=== PATIENT | female | born 2000 | race Caucasian/White ===

== ENCOUNTER 2021-06-13 13:20 | Emergency (ER) | payer SELFPAY ==
[~2021-06-13] VITALS: Ht 157.5 cm; Wt 98.6 kg
[2021-06-13 14:32] LABS: HEMATOCRIT 46.6 % (37.0-47.0); HEMOGLOBIN 15.4 g/dl (12.0-16.0); IMMATURE GRANULOCYTES 0.3 % (0.0-5.0); MEAN CELL VOLUME 88.6 fL CALC (80.0-100.0); MEAN CORPUSCULAR HGB 29.3 pG CALC (26.0-32.0); NEUT# 4.95 thou/uL (2.00-7.15); RED BLOOD COUNT 5.26 mill/uL (4.20-5.60); RED CELL DISTRI WIDTH 12.6 % (11.5-15.5)
[2021-06-13 14:57] LABS: ALBUMIN 4.6 g/dL (3.2-5.0); ALKALINE PHOSPHATASE 60 u/l (38-126); ANION GAP 16 (6-22 (CALC)); BILIRUBIN, TOTAL 0.5 mg/dL (0.0-1.4); BUN 13 mg/dL (7-17); BUN/CREATININE RATIO 17 (12-20 (CALC)); CARBON DIOXIDE 23 mmol/l (22-30); CHLORIDE 106 mmol/l (95-108); CREATININE 0.8 mg/dL (0.5-1.0); GFR > 60 ML/MIN (>=60 (CALC)); GFR FOR AFR.AMER. > 60 ML/MIN (>=60 (CALC)); SGOT/AST 20 u/l (14-36); SODIUM 141 mmol/l (137-146); TOTAL PROTEIN 7.9 g/dL (6.3-8.2)
[2021-06-13] MEDS ORDERED: PREDNISONE20 MG PO (18:56)
[2021-06-13] MEDS ORDERED: VENTOLIN HFA IN (18:56)
[2021-06-13 19:53] VITALS: BP 142/82
== END 2021-06-13 20:04 | disposition home or self-care (01) | DRG 203 ==
LOC: ED 13:20
PROVIDERS: Nurse Practitioner
DX: J45.901 Unspecified asthma with (acute) exacerbation (principal); R51.9 Headache, unspecified

== ENCOUNTER 2021-07-02 06:51 | Emergency (ER) | payer SELFPAY ==
[~2021-07-02] VITALS: Ht 167.6 cm; Wt 99.0 kg
[~2021-07-02 06:51] MED LIST: PREDNISONE20 MG PO; VENTOLIN HFA IN
[2021-07-02 07:02] VITALS: BP 116/77
[2021-07-02 07:15] VITALS: BP 121/75
[2021-07-02 07:30] VITALS: BP 121/74
[2021-07-02] MEDS ORDERED: VENTOLIN HFA IN (07:48)
[2021-07-02] MEDS ORDERED: PREDNISONE20 MG PO (07:48)
[2021-07-02 07:51] VITALS: BP 121/74
== END 2021-07-02 07:59 | disposition home or self-care (01) | DRG 203 ==
LOC: ED 06:51
DX: J45.901 Unspecified asthma with (acute) exacerbation (principal)

== ENCOUNTER 2021-07-03 23:52 | Emergency (ER) | payer SELFPAY ==
[~2021-07-03] VITALS: Ht 167.6 cm; Wt 100.0 kg
[2021-07-04] MEDS ORDERED: VENTOLIN HFA IN (00:46)
[2021-07-04] MEDS ORDERED: ADVAIR DISK2 IN (00:46)
[2021-07-04] MEDS ORDERED: PREDNISONE50 MG PO (00:46)
[2021-07-04 00:55] VITALS: BP 120/60
== END 2021-07-04 00:56 | disposition home or self-care (01) | DRG 203 ==
LOC: ED 23:52
DX: J45.901 Unspecified asthma with (acute) exacerbation (principal); T48.6X6A Underdosing of antiasthmatics, initial encounter; Z91.120 Patient's intentional underdosing of medication regimen due to financial hardship